=== PATIENT | female | born 1975 ===

== ENCOUNTER 2017-06-09 05:21 | Emergency (ER) | payer SELFPAY ==
[2017-06-09 05:21] VITALS: BMI 25.4
[2017-06-09 05:29] VITALS: BP 126/86; PULSE 105; RESP 18; TEMP 99.5; O2SAT 95
--- NOTE | 2017-06-09 05:50 | C.PDOC ---
History Of Present Illness 41 year old female presents to the ER with a complaint of generalized body aches , cough, subjective fever, and headache since yesterday. Patient reports she has two children at home that were diagnosed with the flu two days ago. She reports taking OTC medication with minimal relief. Denies recent travel, abdominal pain, nausea, or vomiting. Time Seen by Provider: 06/09/17 05:33 Chief Complaint (Nursing): Flu-like Symptoms History Per: Patient History/Exam Limitations: no limitations Current Symptoms Are (Timing): Still Present Location Of Pain: Diffuse Myalgias, Headache Sick Contacts (Context): Family Member(s) Associated Symptoms: Fever (Subjective), Cough, Myalgias, Other (Headache). denies: Nausea, Vomiting Ear Symptoms: Bilateral: None Recent travel outside of the [place]: No Past Medical History Reviewed: Historical Data, Nursing Documentation, Vital Signs Vital Signs: Last Vital Signs Temp 99.5 F 06/09/17 05:27 Pulse 105 H 06/09/17 05:27 Resp 18 06/09/17 05:27 BP 126/86 06/09/17 05:27 Pulse Ox 95 06/09/17 05:50 - Medical History PMH: Anemia Family History: States: Unknown Family Hx - Social History Hx Tobacco Use: No Hx Alcohol Use: No Hx Substance Use: No - Immunization History Hx Tetanus Toxoid Vaccination: No Hx Influenza Vaccination: No Hx Pneumococcal Vaccination: No Review Of Systems Constitutional: Positive for: Fever (Subjective). Negative for: Chills Respiratory: Positive for: Cough Gastrointestinal: Negative for: Nausea, Vomiting, Abdominal Pain Musculoskeletal: Positive for: Other (Generalized body aches) Neurological: Positive for: Headache Physical Exam - Physical Exam Appears: Non-toxic, No Acute Distress Skin: Normal Color, Warm, Dry Head: Atraumatic, Normacephalic Eye(s): bilateral: Normal Inspection Ear(s): Bilateral: Normal Nose: Normal Oral Mucosa: Moist Throat: Normal, No Erythema, No Exudate Neck: Normal, Supple Chest: Symmetrical, No Tenderness Cardiovascular: Rhythm Regular Respiratory: Normal Breath Sounds, No Rales, No Rhonchi, No Wheezing Neurological/Psych: Oriented x3, Normal Speech ED Course And Treatment O2 Sat by Pulse Oximetry: 95 (room air) Pulse Ox Interpretation: Normal Progress Note: Motrin administered and tamiflu started in the ER. Patient is resting comfortably in the ER in no acute distress, she reports relief of symptoms. Will discharge home with Rx and instructions to follow up with PMD or return if symptoms worsen. Disposition Counseled Patient/Family Regarding: Diagnosis, Need For Followup, Rx Given - Disposition Referrals: Hermelinda Frederick MD [Primary Care Provider] - Disposition: HOME/ ROUTINE Disposition Time: 05:48 Condition: STABLE Additional Instructions: Increase PO fluids Bed rest Follow up with PMD in 1-2 days Take all meds prescribed Return to ER if worse Prescriptions: Benzonatate [Tessalon Perles] 100 mg PO TID #20 sgl Cetirizine HCl [Zyrtec] 10 mg PO DAILY #20 capsule Ibuprofen [Motrin] 600 mg PO Q6H #30 tab Oseltamivir [Tamiflu] 75 mg PO BID #10 cap Instructions: Influenza (ED) Forms: Artillery (Setswana) Print Language: LUXEMBOURGER - Clinical Impression Clinical Impression: Influenza-like illness - PA / MANAGER TRADING / Resident Statement MD/DO has reviewed & agrees with the documentation as recorded. - Scribe Statement The provider has reviewed the documentation as recorded by the Scribe Kenneth Limon All medical record entries made by the Jlibkenia were at my direction and personally dictated by me. I have reviewed the chart and agree that the record accurately reflects my personal performance of the history, physical exam, medical decision making, and the department course for this patient. I have also personally directed, reviewed, and agree with the discharge instructions and disposition.
== END 2017-06-09 05:58 | disposition home or self-care (01) ==
LOC: SUPCPDRO 05:21 → C.ER 05:21
DX: J11.1 Influenza due to unidentified influenza virus with other respiratory manifestations (principal)